=== PATIENT | female | born 1960 | race African-American/Black ===

== ENCOUNTER 2017-01-04 11:47 | Day surgery (SDC) | payer OTHER, BC ==
[~2017-01-04 11:47] MED LIST: CARVEDILOL3.125 MG PO; DIALYVITE 3,001 EACH PO; HYDROXYZINE HCL25 MG PO; NEXIUM40 MG PO
[2017-01-04] MEDS ORDERED: LO-DOSE ASPIRIN81 M2 PO (12:56)
[2017-01-04] MEDS ORDERED: DUONEB 2.5-0.5 M3 ML PEP (12:57)
[2017-01-04] MEDS ORDERED: GRALISE300 MG PO (12:57)
[2017-01-04] MEDS ORDERED: MIDODRINE HCL10 MG PO (12:58)
[2017-01-04] MEDS ORDERED: PROTONIX40 MG PO (12:59)
[2017-01-04] MEDS ORDERED: NEXIUM40 MG PO (12:59)
[2017-01-04] MEDS ORDERED: SENSIPAR60 MG PO (13:00)
[2017-01-04] MEDS ORDERED: RENVELA800 MG PO (13:00)
[2017-01-04] MEDS ORDERED: TRAMADOL HCL50 MG PO (13:00)
[2017-01-04 14:31] LABS: METH RESISTANT S AUREUS PCR NEGATIVE (NEGATIVE)
[2017-01-04 14:34] LABS: PROBE CHECK PASS; SPECIMEN PROCESSING CONTROL PASS
== END 2017-01-04 15:10 | disposition home or self-care (01) ==
LOC: CATH 11:47
PROVIDERS: Surgery
PROC: 3E03317 Introduction of Other Thrombolytic into Peripheral Vein, Percutaneous Approach (ICD-10-PCS; principal; 2017-01-04)
PROC: 05HY33Z Insertion of Infusion Device into Upper Vein, Percutaneous Approach (ICD-10-PCS; principal; 2017-01-04)
PROC: 057Y3ZZ Dilation of Upper Vein, Percutaneous Approach (ICD-10-PCS; principal; 2017-01-04)
PROC: B51W1ZZ Fluoroscopy of Dialysis Shunt/Fistula using Low Osmolar Contrast (ICD-10-PCS; principal; 2017-01-04)
DX: T82.858A Stenosis of other vascular prosthetic devices, implants and grafts, initial encounter (principal); I12.0 Hypertensive chronic kidney disease with stage 5 chronic kidney disease or end stage renal disease; N18.6 End stage renal disease; Z99.2 Dependence on renal dialysis; Z79.899 Other long term (current) drug therapy
CPT/HCPCS: 87641; C1725; C1769; C1894; J1644; J2250; J3010

== ENCOUNTER 2017-02-06 07:18 | Day surgery (SDC) | payer OTHER, BC ==
[~2017-02-06] VITALS: Ht 152.4 cm; Wt 70.0 kg
[~2017-02-06 07:18] MED LIST changes: +DUONEB 2.5-0.5 M3 ML PEP; +GRALISE300 MG PO; +LO-DOSE ASPIRIN81 M2 PO; +MIDODRINE HCL10 MG PO; +PROTONIX40 MG PO; +RENVELA800 MG PO; +SENSIPAR60 MG PO; +TRAMADOL HCL50 MG PO
[2017-02-06] MEDS ORDERED: BUTRANS1 EAC4 TD (08:03)
[2017-02-06 08:05] VITALS: BP 156/102
[2017-02-06 08:27] LABS: HEMATOCRIT 41.9 % (36.0-46.0); MCH 28.8 PG (29.0-34.0); MCHC 33.2 G/DL (30.0-36.0); MCV 86.7 FL (83-99); MEAN PLAT.VOLUME 9.8 uM^3 (9.5-12.4); PLATELET COUNT 283 K/uL (156-360); RBC DIS.WIDTH-SD 44.4 % (39-53); RED BLOOD COUNT 4.83 M/uL (3.80-5.20); WHITE BLOOD COUNT 6.5 K/uL (4.1-10.2)
[2017-02-06 08:49] LABS: ANION GAP 17 MEQ/L (2-14); CHLORIDE 93 MEQ/L (99-109); GFR ESTIMATE (CALCULATED) 4 mL/min/; GLUCOSE 79 mg/dL (70-99); POTASSIUM 4.1 MEQ/L (3.7-5.4); SAMPLE HEMOLYSIS CHECK 0; SAMPLE ICTERIC CHECK 0; SAMPLE LIPEMIA CHECK 0; SODIUM 140 MEQ/L (136-147); UREA NITROGEN (BUN) 36 mg/dL (9-23)
[2017-02-06 09:09] LABS: METH RESISTANT S AUREUS PCR NEGATIVE (NEGATIVE)
[2017-02-06 09:17] LABS: PROBE CHECK PASS; SPECIMEN PROCESSING CONTROL PASS
[2017-02-06 12:37] VITALS: BP 107/76
[2017-02-06 13:40] VITALS: BP 103/76
[2017-02-06 15:18] VITALS: BP 124/80
== END 2017-02-06 15:33 | disposition home or self-care (01) ==
LOC: SDC 07:18
PROVIDERS: Surgery
DX: T82.41XA Breakdown (mechanical) of vascular dialysis catheter, initial encounter (principal); T82.858A Stenosis of other vascular prosthetic devices, implants and grafts, initial encounter; I12.0 Hypertensive chronic kidney disease with stage 5 chronic kidney disease or end stage renal disease; N18.6 End stage renal disease; Z99.2 Dependence on renal dialysis; Z79.899 Other long term (current) drug therapy; Z79.82 Long term (current) use of aspirin; K21.9 Gastro-esophageal reflux disease without esophagitis
CPT/HCPCS: 80048; 85027; 87641; 93005; C1725; C1768; C1769; C1874; C1894; C2628; J0690; J1644; J2250; J2405; J2720; J3010; J7040